=== PATIENT | female | born 1995 | race Caucasian/White ===

== ENCOUNTER 2016-12-26 20:17 | Emergency (ER) | payer MEDICAID ==
[~2016-12-26] VITALS: Ht 157.5 cm; Wt 99.1 kg
[~2016-12-26 20:17] MED LIST: FERR325T63 PO; IBUP-1222 PO; OXYC-302 PO; PREN1TAB60 PO
[2016-12-26] MEDS ORDERED: SODIUM CHLORIDE 0.9% 1,000ML IVBOLUS ONE (21:00)
[2016-12-26] MEDS ORDERED: IBUPROFEN 200 MG TABLET PO ONE ×2 (21:00→22:30)
[2016-12-26 21:35] LABS: ASPARTATE AMINO TRANSFERASE 32 U/L (15-37); BLOOD UREA NITROGEN 18 mg/dL (7-18)
[2016-12-26 21:51] LABS: PATH.CAST-FLAG NOT PRESENT; SPERM-FLAG NOT PRESENT; SRC-FLAG NOT PRESENT; XTAL-FLAG NOT PRESENT; YLC-FLAG NOT PRESENT
[2016-12-26] MEDS ORDERED: FAMOTIDINE 20 MG/2 ML IVP ONE (22:30)
[2016-12-26] MEDS ORDERED: ONDANSETRON 2MG/ML, 2ML IVPush ONE (22:30)
[2016-12-26] MEDS ORDERED: FAMOTIDINE 20 MG/2 ML ONE (22:49)
[2016-12-26] MEDS ORDERED: ONDANSETRON 2MG/ML, 2ML ONE (22:49)
[2016-12-26] MEDS ORDERED: IBUPROFEN 200 MG TABLET ONE (22:49)
[2016-12-26] MEDS ORDERED: OMNIPAQUE 350 MG/ML, 100ML BOTTLE ONE (22:51)
[2016-12-26 23:53] VITALS: BP 116/65
== END 2016-12-26 23:59 | disposition home or self-care (01) ==
LOC: ED 23:53
DX: R19.7 Diarrhea, unspecified (principal); R11.2 Nausea with vomiting, unspecified; E86.0 Dehydration; G43.909 Migraine, unspecified, not intractable, without status migrainosus
CPT/HCPCS: 36415; 71010; 74177; 80053; 81001; 83605; 84145; 84703; 85025; 87040; 87086; 96361; 96374; 96375; 99285; J2405; J7030; Q9967; S0028

== ENCOUNTER 2018-09-02 18:51 | Emergency (ER) | payer MEDICAID ==
[~2018-09-02] VITALS: Ht 157.5 cm; Wt 88.6 kg
[2018-09-02 19:31] LABS: BASOPHILS # (AUTO) 0.09 x10^3/uL (0-0.1); BASOPHILS % (AUTO) 1 % (0-1); EOSINOPHILS # (AUTO) 0.22 x10^3/uL (0-0.4); EOSINOPHILS % (AUTO) 3 % (1-7); LYMPHOCYTES # (AUTO) 1.53 x10^3/uL (1-3.4); LYMPHOCYTES % (AUTO) 18 % (22-44); MD NO; MEAN CORPUSCULAR HEMOGLOBIN 29.4 pg (27.0-34.8); MEAN CORPUSCULAR HGB CONC 34.6 g/dL (32.4-35.8); MEAN PLATELET VOLUME 7.5 fL (7.4-10.4); MONOCYTES # (AUTO) 0.65 x10^3/uL (0.2-0.8); MONOCYTES % (AUTO) 8 % (2-9); NEUTROPHILS # (AUTO) 6.12 x10^3/uL (1.8-6.8); NEUTROPHILS % (AUTO) 71 % (42-75); PLATELET COUNT 378 x10^3/uL (130-400); RED BLOOD COUNT 4.62 x10^6/uL (3.82-5.3); RED CELL DISTRIBUTION WIDTH 13.2 % (9.6-15.2)
[2018-09-02 19:34] LABS: CULTURE INDICATED? YES; MICROSCOPIC INDICATED
[2018-09-02 19:36] LABS: ALBUMIN 3.7 g/dL (3.4-5.0); ANION GAP 5 mmol/L (5-15); CALCIUM 8.6 mg/dL (8.5-10.1); CHLORIDE 112 mmol/L (98-107); CREATININE 0.77 mg/dL (0.55-1.02)
[2018-09-02 21:07] VITALS: BP 136/89
== END 2018-09-02 21:10 | disposition home or self-care (01) ==
LOC: ED 21:04
DX: O26.891 Other specified pregnancy related conditions, first trimester (principal); R10.30 Lower abdominal pain, unspecified; Z3A.01 Less than 8 weeks gestation of pregnancy
CPT/HCPCS: 36415; 76801; 80048; 81001; 82040; 84702; 85025; 87086; 99284

== ENCOUNTER 2018-09-21 04:13 | Emergency (ER) | payer MEDICAID ==
[~2018-09-21] VITALS: Ht 157.5 cm; Wt 88.0 kg
[2018-09-21 04:23] VITALS: BP 106/63
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
--- NOTE | 2018-09-21 05:11 | NUR ---
UPON DISCHARGE PT CONT TO YELL AT RN "YOU FUCKING CUNT, FUCK YOU BITCH". PT ESCORTED OUT BY SECURITY. PT CONT TO YELL AND SCREAM, THREATENING STAFF SHE WAS BEING ESCORTED OUT.
== END 2018-09-21 05:14 | disposition home or self-care (01) ==
LOC: ED 05:02
DX: O99.311 Alcohol use complicating pregnancy, first trimester (principal); G92 Toxic encephalopathy; Z3A.08 8 weeks gestation of pregnancy
CPT/HCPCS: 99283

== ENCOUNTER 2019-09-13 00:01 | Emergency (ER) | payer MEDICAID ==
[~2019-09-13] VITALS: Ht 157.5 cm; Wt 100.7 kg
[2019-09-13] MEDS ORDERED: ONDANSETRON 2MG/ML, 2ML IVPush ONE (00:30)
[2019-09-13] MEDS ORDERED: KETOROLAC 30 MG/1 ML IVPush ONE (00:30)
[2019-09-13] MEDS ORDERED: SODIUM CHLORIDE FLUSH 10ML SYR IVF ONE (00:30)
[2019-09-13] MEDS ORDERED: KETOROLAC 30 MG/1 ML ONE (00:31)
[2019-09-13] MEDS ORDERED: MORPHINE SULFATE 4 MG/ML, 1ML ONE ×2 (00:31→02:35)
[2019-09-13] MEDS ORDERED: ONDANSETRON 2MG/ML, 2ML ONE (00:31)
--- NOTE | 2019-09-13 00:40 | NUR ---
Mychal RN: IV access obtained. Labs drawn. Pt medicated for severe R flank pain. Per ERP, morphine held to see if toradol is affective. Call light in reach. Report to debbie Davis RN.
[2019-09-13] MEDS: MORPHINE SULFATE 4 MG/ML, 1ML IVPush PRN ×2 (00:50→02:39)
[2019-09-13 00:51] LABS: BASOPHILS # (AUTO) 0.05 x10^3/uL (0-0.1); BASOPHILS % (AUTO) 1 % (0-1); EOSINOPHILS # (AUTO) 0.24 x10^3/uL (0-0.4); EOSINOPHILS % (AUTO) 3 % (1-7); LYMPHOCYTES # (AUTO) 1.91 x10^3/uL (1-3.4); LYMPHOCYTES % (AUTO) 22 % (22-44); MD NO; MEAN CORPUSCULAR HEMOGLOBIN 27.7 pg (27.0-34.8); MEAN CORPUSCULAR HGB CONC 33.5 g/dL (32.4-35.8); MEAN CORPUSCULAR VOLUME 82.5 fL (80-100); MEAN PLATELET VOLUME 7.9 fL (7.4-10.4); MONOCYTES # (AUTO) 0.56 x10^3/uL (0.2-0.8); MONOCYTES % (AUTO) 7 % (2-9); NEUTROPHILS # (AUTO) 5.82 x10^3/uL (1.8-6.8); NEUTROPHILS % (AUTO) 68 % (42-75); PLATELET COUNT 366 x10^3/uL (130-400); RED BLOOD COUNT 4.84 x10^6/uL (3.82-5.3); RED CELL DISTRIBUTION WIDTH 14.5 % (9.6-15.2)
--- NOTE | 2019-09-13 00:56 | NUR ---
PATIENT MEDICATED FOR PAIN. HOOKED TO MONITOR.
[2019-09-13 00:58] LABS: ALANINE AMINOTRANSFERASE 34 U/L (12-78); ALBUMIN 3.7 g/dL (3.4-5.0); ANION GAP 7 mmol/L (5-15); CALCIUM 9.1 mg/dL (8.5-10.1); CHLORIDE 111 mmol/L (98-107); CREATININE 0.78 mg/dL (0.55-1.02)
[2019-09-13 01:03] LABS: ALKALINE PHOSPHATASE 86 U/L (45-117); BILIRUBIN,TOTAL 0.2 mg/dL (0.2-1.0); TOTAL PROTEIN 8.2 g/dL (6.4-8.2)
--- NOTE | 2019-09-13 01:21 | NUR ---
back from CT scan. awaiting result.
[2019-09-13 01:43] VITALS: BP 111/58
[2019-09-13 02:03] LABS: MICROSCOPIC INDICATED
[2019-09-13 02:04] LABS: CULTURE INDICATED? YES
[2019-09-13 02:36] LABS: CULTURE INDICATED? YES; MICROSCOPIC INDICATED
[2019-09-13] MEDS ORDERED: HYDROcodone/APAP 5/325 TABLET PO ONE (03:00)
[2019-09-13] MEDS ORDERED: HYDROcodone/APAP 5/325 TABLET ONE (03:11)
== END 2019-09-13 03:17 | disposition home or self-care (01) ==
LOC: ED 01:00
DX: N13.2 Hydronephrosis with renal and ureteral calculous obstruction (principal); R10.31 Right lower quadrant pain; R94.31 Abnormal electrocardiogram [ECG] [EKG]
CPT/HCPCS: 36415; 74176; 80053; 81001; 83690; 84703; 85025; 87077; 87086; 93005; 96374; 96375; 96376; 99285; J1885; J2270; J2405; 87186

== ENCOUNTER 2019-09-13 17:19 | Inpatient (IN) | payer MEDICAID, OTHER ==
[~2019-09-13] VITALS: Ht 157.5 cm; Wt 116.0 kg
[2019-09-13] MEDS ORDERED: SODIUM CHLORIDE 0.9% 1,000 ML IV ONE ×2 (18:15→21:04)
[2019-09-13] MEDS ORDERED: MORPHINE SULFATE 4 MG/ML, 1ML ONE ×2 (18:17→21:09)
[2019-09-13] MEDS ORDERED: ACETAMINOPHEN 500 MG TABLET ONE (18:18)
[2019-09-13] MEDS: MORPHINE SULFATE 4 MG/ML, 1ML IVPush PRN ×2 (18:24→21:13)
--- NOTE | 2019-09-13 18:24 | NUR ---
meds per aug. plan for straight cath. as
[2019-09-13] MEDS ORDERED: SODIUM CHLORIDE 0.9% 1,000ML IVBOLUS ONE ×3 (18:30→21:30)
[2019-09-13] MEDS ORDERED: SODIUM CHLORIDE FLUSH 10ML SYR IVF ONE (18:30)
[2019-09-13] MEDS ORDERED: ACETAMINOPHEN 500 MG TABLET PO ONE (18:30)
[2019-09-13 19:11] LABS: ALANINE AMINOTRANSFERASE 26 U/L (12-78); ALBUMIN 3.3 g/dL (3.4-5.0); ANION GAP 8 mmol/L (5-15); CALCIUM 8.4 mg/dL (8.5-10.1); CHLORIDE 106 mmol/L (98-107); CREATININE 1.25 mg/dL (0.55-1.02)
[2019-09-13 19:13] LABS: ALKALINE PHOSPHATASE 71 U/L (45-117); BILIRUBIN,TOTAL 1.5 mg/dL (0.2-1.0); TOTAL PROTEIN 7.2 g/dL (6.4-8.2)
[2019-09-13 19:40] LABS: BASOPHILS % (AUTO) 0 % (0-1); EOSINOPHILS % (AUTO) 0 % (1-7); LYMPHOCYTES # (AUTO) 0.17 x10^3/uL (1-3.4); LYMPHOCYTES % (AUTO) 2 % (22-44); MD SCAN; MEAN CORPUSCULAR HEMOGLOBIN 27.8 pg (27.0-34.8); MEAN CORPUSCULAR HGB CONC 33.8 g/dL (32.4-35.8); MEAN CORPUSCULAR VOLUME 82.3 fL (80-100); MEAN PLATELET VOLUME 7.7 fL (7.4-10.4); MONOCYTES % (AUTO) 0 % (2-9); NEUTROPHILS # (AUTO) 8.72 x10^3/uL (1.8-6.8); NEUTROPHILS % (AUTO) 98 % (42-75); PLATELET COUNT 211 x10^3/uL (130-400); RED BLOOD COUNT 4.37 x10^6/uL (3.82-5.3); RED CELL DISTRIBUTION WIDTH 13.9 % (9.6-15.2)
--- NOTE | 2019-09-13 19:45 | NUR ---
UA COLLECTED VIA STRAIGHT CATH AND TAKEN TO LAB.
[2019-09-13 20:26] LABS: MICROSCOPIC INDICATED
[2019-09-13 20:27] LABS: CULTURE INDICATED? YES
--- NOTE | 2019-09-13 20:30 | NUR ---
ALL RESULTS ARE BACK AT THIS TIME. CHART UP FOR RECHECK.
[2019-09-13] MEDS ORDERED: CEFTRIAXONE PMX 2GM/50ML 50 ML IV SCH (21:00)
[2019-09-13] MEDS ORDERED: CEFTRIAXONE ONE (21:09)
--- NOTE | 2019-09-13 21:23 | NUR ---
REPORT TO MENDOZA IN OR. PT HAS RECIEVED 1.5 L FLUID SO FAR. 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 SEE EMAR NOTE RE: MEG. ALVINO IN ROOM FOR EVAL. PT TX TO OR BY OR TECHS W/ BELONGINGS.
[2019-09-13] MEDS ORDERED: SODIUM CHLORIDE FLUSH 10ML SYR IVF PRN (21:30)
[2019-09-13] MEDS ORDERED: MIDAZOLAM 1 MG/ML, 2ML ONE (21:40)
[2019-09-13] MEDS ORDERED: FENTANYL PF 100 MCG/2ML ONE ×2 (21:40→22:16)
[2019-09-13] MEDS ORDERED: LIDOCAINE-MPF 2% ,5ML ONE (21:42)
[2019-09-13] MEDS ORDERED: PROPOFOL 10 MG/ML, 20ML ONE (21:42)
[2019-09-13] MEDS ORDERED: SUCCINYLCHOLINE 20 MG/ML, 10ML ONE (21:42)
[2019-09-13] MEDS ORDERED: ONDANSETRON 2MG/ML, 2ML ONE (21:45)
[2019-09-13] MEDS ORDERED: CEFOTETAN 1 GM ONE (21:45)
[2019-09-13] MEDS ORDERED: DEXAMETHASONE 4 MG/ML, 1ML ONE ×2 (21:57)
[2019-09-13] MEDS ORDERED: LIDODERM 5% PATCH TD PRN (22:00)
[2019-09-13] MEDS ORDERED: DOCUSATE 100 MG CAPSULE PO PRN (22:00)
[2019-09-13] MEDS ORDERED: ACETAMINOPHEN 325 MG TABLET PO PRN ×3 (22:00→23:00)
[2019-09-13] MEDS ORDERED: TEMAZEPAM 15 MG CAPSULE PO PRN (22:00)
[2019-09-13] MEDS ORDERED: ONDANSETRON ODT 4 MG PO PRN (22:00)
[2019-09-13] MEDS ORDERED: EPHEDRINE 50 MG/ML, 1ML IVPush PRN ×2 (22:30→23:00)
[2019-09-13] MEDS ORDERED: PROMETHAZINE 25 MG/ML, 1ML IV PRN ×2 (22:30→23:00)
[2019-09-13] MEDS ORDERED: LABETALOL 5MG/ML, 20ML IV PRN ×2 (22:30→23:00)
[2019-09-13] MEDS ORDERED: OXYcodone 5 MG/5 ML ORAL.SOL UDC PO PRN ×2 (22:30→23:00)
[2019-09-13] MEDS ORDERED: ONDANSETRON 2MG/ML, 2ML IV PRN ×2 (22:30→23:00)
[2019-09-13] MEDS ORDERED: HYDROmorphone 2 MG/ML, 1ML IVPush PRN ×2 (22:30→23:00)
[2019-09-13] MEDS ORDERED: hydrALAzine 20 MG/ML, 1ML IV PRN ×2 (22:30→23:00)
[2019-09-13] MEDS ORDERED: MEPERIDINE/PF 25MG/ML,1ML IVPush PRN ×2 (22:30→23:00)
[2019-09-13] MEDS ORDERED: FENTANYL PF 100 MCG/2ML IV PRN ×2 (22:30→23:00)
[2019-09-13] MEDS ORDERED: OMNIPAQUE 350 MG/ML, 50 ML BOTTLE ONE (22:33)
[2019-09-13] MEDS: LACTATED RINGERS 1,000 ML IV SCH (22:36)
[2019-09-13] MEDS ORDERED: ACETAMINOPHEN 650 MG/20.3 ML UDC ONE (23:07)
[2019-09-13] MEDS ORDERED: OXYcodone 5 MG/5 ML ORAL.SOL UDC ONE (23:08)
[2019-09-14] VITALS (7 sets, daily range): BP systolic 83–108; BP diastolic 49–65
[2019-09-14] MEDS: HYDROcodone/APAP 5/325 TABLET PO PRN ×3 (00:27→19:41)
[2019-09-14 05:02] LABS: MEAN CORPUSCULAR HEMOGLOBIN 28.3 pg (27.0-34.8); MEAN CORPUSCULAR VOLUME 83.3 fL (80-100); MEAN PLATELET VOLUME 8.2 fL (7.4-10.4); PLATELET COUNT 224 x10^3/uL (130-400); RED BLOOD COUNT 3.89 x10^6/uL (3.82-5.3); RED CELL DISTRIBUTION WIDTH 14.2 % (9.6-15.2)
[2019-09-14 05:06] LABS: ANION GAP 11 mmol/L (5-15); CALCIUM 8.1 mg/dL (8.5-10.1); CHLORIDE 112 mmol/L (98-107); CREATININE 1.24 mg/dL (0.55-1.02)
[2019-09-14 05:51] LABS: MD YES
[2019-09-14 05:52] LABS: BAND#(MANUAL) 6.47 x10^3/uL; BANDS%(MANUAL) 21 % (0-7); METAMYELOCYTES# (MANUAL) 0.31 x10^3/uL (0-0); METAMYELOCYTES% (MANUAL) 1 % (0-1); MONOS#(MANUAL) 0.31 x10^3/uL (0.3-2.7); MONOS% (MANUAL) 1 % (2-9); SEG#(MANUAL) 23.72 x10^3/uL (1.8-6.8); SEGS% (MANUAL) 77 % (42-75)
[2019-09-14 05:53] LABS: <PLATELET ESTIMATE> ADEQUATE; <PLT MORPHOLOGY> NORMAL PLT MORPH; <RBC MORPHOLOGY> NORMAL
[2019-09-14] MEDS: LACTATED RINGERS 1,000 ML IV SCH ×2 (08:41→16:05)
[2019-09-14] MEDS: IBUPROFEN 600 MG TABLET PO PRN ×3 (08:50→22:39)
[2019-09-14] MEDS: CEFTRIAXONE PMX 2GM/50ML 50 ML IV SCH (21:24)
[2019-09-15] MEDS: LACTATED RINGERS 1,000 ML IV SCH ×3 (00:20→16:30)
[2019-09-15 02:14] VITALS: BP 88/57
[2019-09-15] MEDS: IBUPROFEN 600 MG TABLET PO PRN ×2 (04:43→17:49)
[2019-09-15 04:47] VITALS: BP 103/61
[2019-09-15 06:32] VITALS: BP 93/68
[2019-09-15 08:33] LABS: MEAN CORPUSCULAR HEMOGLOBIN 28.2 pg (27.0-34.8); MEAN CORPUSCULAR HGB CONC 33.2 g/dL (32.4-35.8); MEAN CORPUSCULAR VOLUME 84.8 fL (80-100); PLATELET COUNT 201 x10^3/uL (130-400); RED BLOOD COUNT 3.61 x10^6/uL (3.82-5.3); RED CELL DISTRIBUTION WIDTH 15.3 % (9.6-15.2)
[2019-09-15 08:34] LABS: ANION GAP 4 mmol/L (5-15); CALCIUM 8.2 mg/dL (8.5-10.1); CHLORIDE 113 mmol/L (98-107); CREATININE 0.69 mg/dL (0.55-1.02)
[2019-09-15] MEDS: HYDROcodone/APAP 5/325 TABLET PO PRN ×2 (08:41→18:43)
[2019-09-15 08:54] LABS: MD YES
[2019-09-15 08:55] LABS: BAND#(MANUAL) 2.39 x10^3/uL; BANDS%(MANUAL) 10 % (0-7); EOS#(MANUAL) 0.24 x10^3/uL (0.0-0.4); EOS% (MANUAL) 1 % (1-7); LYMPHS% (MANUAL) 5 % (22-44); METAMYELOCYTES# (MANUAL) 0.24 x10^3/uL (0-0); METAMYELOCYTES% (MANUAL) 1 % (0-1); MONOS#(MANUAL) 0.48 x10^3/uL (0.3-2.7); MONOS% (MANUAL) 2 % (2-9); SEG#(MANUAL) 19.36 x10^3/uL (1.8-6.8); SEGS% (MANUAL) 81 % (42-75)
[2019-09-15 08:56] LABS: <PLATELET ESTIMATE> ADEQUATE; <PLT MORPHOLOGY> NORMAL PLT MORPH; ANISOCYTOSIS 1+; OVALOCYTES 1+
[2019-09-15 14:30] VITALS: BP 98/64
[2019-09-15 19:51] VITALS: BP 92/62
[2019-09-15] MEDS: CEFTRIAXONE PMX 2GM/50ML 50 ML IV SCH (21:05)
[2019-09-16 01:42] VITALS: BP 106/72
[2019-09-16] MEDS: LACTATED RINGERS 1,000 ML IV SCH ×3 (01:54→17:55)
[2019-09-16] MEDS: IBUPROFEN 600 MG TABLET PO PRN ×3 (01:56→15:00)
[2019-09-16 05:12] LABS: MEAN CORPUSCULAR HGB CONC 33.5 g/dL (32.4-35.8); MEAN CORPUSCULAR VOLUME 83.7 fL (80-100); MEAN PLATELET VOLUME 8.4 fL (7.4-10.4); PLATELET COUNT 184 x10^3/uL (130-400); RED BLOOD COUNT 3.24 x10^6/uL (3.82-5.3)
[2019-09-16 05:15] LABS: ALANINE AMINOTRANSFERASE 27 U/L (12-78); ALBUMIN 2.1 g/dL (3.4-5.0); ANION GAP 4 mmol/L (5-15); CALCIUM 7.8 mg/dL (8.5-10.1); CHLORIDE 112 mmol/L (98-107); CREATININE 0.61 mg/dL (0.55-1.02)
[2019-09-16 05:17] LABS: ALKALINE PHOSPHATASE 52 U/L (45-117); TOTAL PROTEIN 5.4 g/dL (6.4-8.2)
[2019-09-16 05:25] LABS: BILIRUBIN,TOTAL < 0.1 mg/dL (0.2-1.0)
[2019-09-16 05:52] LABS: BASOPHILS # (AUTO) 0.03 x10^3/uL (0-0.1); BASOPHILS % (AUTO) 0 % (0-1); EOSINOPHILS # (AUTO) 0.18 x10^3/uL (0-0.4); EOSINOPHILS % (AUTO) 2 % (1-7); LYMPHOCYTES # (AUTO) 0.94 x10^3/uL (1-3.4); LYMPHOCYTES % (AUTO) 10 % (22-44); MD SCAN; MONOCYTES # (AUTO) 0.35 x10^3/uL (0.2-0.8); MONOCYTES % (AUTO) 4 % (2-9); NEUTROPHILS % (AUTO) 85 % (42-75)
[2019-09-16 06:32] VITALS: BP 108/75
[2019-09-16] MEDS ORDERED: POTASSIUM CHLORIDE 20 MEQ TAB.ER.PRT PO ONE (10:00)
[2019-09-16] MEDS ORDERED: CEFD300C37 PO (10:06)
[2019-09-16] MEDS: HYDROcodone/APAP 5/325 TABLET PO PRN ×2 (12:15→19:12)
[2019-09-16 13:02] VITALS: BP 112/75
[2019-09-16 19:19] VITALS: BP 113/78
[2019-09-16] MEDS: CEFTRIAXONE PMX 2GM/50ML 50 ML IV SCH (20:43)
[2019-09-17] MEDS: LACTATED RINGERS 1,000 ML IV SCH (01:04)
[2019-09-17] MEDS: IBUPROFEN 600 MG TABLET PO PRN ×2 (01:45→09:15)
[2019-09-17 03:33] VITALS: BP 108/73
[2019-09-17 05:05] LABS: BASOPHILS # (AUTO) 0.03 x10^3/uL (0-0.1); BASOPHILS % (AUTO) 1 % (0-1); EOSINOPHILS # (AUTO) 0.08 x10^3/uL (0-0.4); EOSINOPHILS % (AUTO) 2 % (1-7); LYMPHOCYTES # (AUTO) 0.84 x10^3/uL (1-3.4); LYMPHOCYTES % (AUTO) 20 % (22-44); MD NO; MEAN CORPUSCULAR HEMOGLOBIN 27.7 pg (27.0-34.8); MEAN CORPUSCULAR HGB CONC 33.5 g/dL (32.4-35.8); MEAN CORPUSCULAR VOLUME 82.7 fL (80-100); MEAN PLATELET VOLUME 8.2 fL (7.4-10.4); MONOCYTES # (AUTO) 0.32 x10^3/uL (0.2-0.8); MONOCYTES % (AUTO) 8 % (2-9); NEUTROPHILS # (AUTO) 3.02 x10^3/uL (1.8-6.8); NEUTROPHILS % (AUTO) 70 % (42-75); PLATELET COUNT 254 x10^3/uL (130-400); RED BLOOD COUNT 3.82 x10^6/uL (3.82-5.3); RED CELL DISTRIBUTION WIDTH 13.9 % (9.6-15.2)
[2019-09-17 07:09] VITALS: BP 94/66
== END 2019-09-17 10:50 | disposition home or self-care (01) | DRG 853 ==
LOC: ED 17:33 → EDIP 22:00 → 4NE 23:45
PROVIDERS: ADMIT Family Medicine; ATTEND Family Medicine
PROC: 0T768DZ Dilation of Right Ureter with Intraluminal Device, Via Natural or Artificial Opening Endoscopic (ICD-10-PCS; 2019-09-13)
PROC: 0TC68ZZ Extirpation of Matter from Right Ureter, Via Natural or Artificial Opening Endoscopic (ICD-10-PCS; principal; 2019-09-13 21:30)
DX: A41.9 Sepsis, unspecified organism (principal); N17.0 Acute kidney failure with tubular necrosis; R65.21 Severe sepsis with septic shock; E87.1 Hypo-osmolality and hyponatremia; N12 Tubulo-interstitial nephritis, not specified as acute or chronic; N13.6 Pyonephrosis; F10.129 Alcohol abuse with intoxication, unspecified; Y90.0 Blood alcohol level of less than 20 mg/100 ml; G43.909 Migraine, unspecified, not intractable, without status migrainosus; E87.6 Hypokalemia; Z87.442 Personal history of urinary calculi; Z90.89 Acquired absence of other organs
CPT/HCPCS: 36415; 74420; 99285; J3490; 80048; 80053; 81001; 83690; 85025; 87040; 87086; 88300; G0378; J0696; J1100; J2250; J2405; J2704; J3010; Q9967; C1758; C1769; C2617; J0330; J2270; J7030; J7120

== ENCOUNTER 2019-12-15 19:44 | Emergency (ER) | payer MEDICAID, OTHER ==
[~2019-12-15] VITALS: Ht 157.5 cm; Wt 92.9 kg
[~2019-12-15 19:44] MED LIST changes: +CEFD300C37 PO
[2019-12-15 19:47] VITALS: BP 130/82
[2019-12-15] MEDS ORDERED: KETOROLAC 30 MG/1 ML ONE (20:16)
[2019-12-15] MEDS ORDERED: KETOROLAC 30 MG/1 ML IM ONE (20:30)
== END 2019-12-15 21:34 | disposition home or self-care (01) ==
LOC: ED 21:15
DX: G89.11 Acute pain due to trauma (principal); M25.531 Pain in right wrist; F17.200 Nicotine dependence, unspecified, uncomplicated; V49.9XXA Car occupant (driver) (passenger) injured in unspecified traffic accident, initial encounter; Y93.89 Activity, other specified; Y92.488 Other paved roadways as the place of occurrence of the external cause; Y99.8 Other external cause status
CPT/HCPCS: 29125; 73110; 96372; 99283; J1885

== ENCOUNTER 2021-01-10 14:21 | Emergency (ER) | payer MEDICAID ==
[~2021-01-10] VITALS: Ht 157.5 cm; Wt 93.8 kg
[~2021-01-10 14:21] MED LIST changes: -OXYC-302 PO; +OXYC1TAB14 PO
--- NOTE | 2021-01-10 14:54 | NUR ---
NAX1
[2021-01-10 14:55] VITALS: BP 133/78
--- NOTE | 2021-01-10 16:39 | NUR ---
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
== END 2021-01-10 17:39 | disposition home or self-care (01) ==
LOC: ED 17:00
DX: U07.1 COVID-19 (principal); M79.10 Myalgia, unspecified site; R05 Cough; R07.89 Other chest pain
CPT/HCPCS: 71045; 99284; U0003; U0005